=== PATIENT | male | born 1945 | race Caucasian/White ===

== ENCOUNTER 2017-10-07 00:17 | Observation (INO) | payer MEDICARE, OTHER ==
[~2017-10-07] VITALS: Ht 180.3 cm; Wt 102.3 kg
[~2017-10-07 00:17] MED LIST: ASCO500C15 PO; ASPI-1071 PO; ATOR10TA70 PO; CLON-527 PO; CLOP75TA35 PO; CYAN-19 PO; LEVE500T PO; LEVO25TA7 PO; OMEG1CAP2 PO; VIT1CAPS46 PO; ZOL50T PO
[2017-10-07 01:34] LABS: BASOPHILS % (AUTO) 0.4 % (0-1); EOSINOPHILS # (AUTO) 0.2 X10'3 (0-0.9); EOSINOPHILS % (AUTO) 1.3 % (0-6); HEMATOCRIT 42.3 % (42.0-52.0); HEMOGLOBIN 14.2 g/dl (14.0-17.9); LYMPHOCYTES # (AUTO) 1.2 X10'3 (1.1-4.8); LYMPHOCYTES % (AUTO) 10.3 % (21-51); MEAN CORPUSCULAR HEMOGLOBIN 28.7 PG (27.0-31.0); MEAN CORPUSCULAR HGB CONC 33.7 % (33.0-36.5); MEAN CORPUSCULAR VOLUME 85.3 FL (78-98); MEAN PLATELET VOLUME 7.5 FL (7.4-10.4); MONOCYTES # (AUTO) 0.6 X10'3 (0-0.9); MONOCYTES % (AUTO) 4.8 % (2-12); NEUTROPHILS # (AUTO) 9.7 X10'3 (1.8-7.7); NEUTROPHILS % (AUTO) 83.2 % (42-75); PLATELET COUNT 178 X10'3 (140-440); RED BLOOD COUNT 4.96 X10'6 (4.70-6.10); RED CELL DISTRIBUTION WIDTH 14.5 % (11.5-14.5); WHITE BLOOD COUNT 11.7 X10'3 (4.5-11.0)
[2017-10-07 01:43] LABS: PARTIAL THROMBOPLASTIN TIME 27 SECONDS (22-32); PROTHROMBIN TIME 10.7 SECONDS (9.0-12.0)
[2017-10-07 03:29] LABS: ALANINE AMINOTRANSFERASE 28 U/L (12-78); ALBUMIN 3.6 G/DL (3.4-5.0); ALBUMIN/GLOBULIN RATIO 1.2 (1.1-1.5); ALKALINE PHOSPHATASE 79 IU/L (46-116); ANION GAP 14 (8-16); ASPARTATE AMINO TRANSFERASE 16 U/L (10-37); BILIRUBIN,TOTAL 0.8 MG/DL (0.1-1.0); BLOOD UREA NITROGEN 16 MG/DL (7-18); BUN/CREATININE RATIO 11.9 (5.4-32.0); CALCIUM 9.2 MG/DL (8.5-10.1); CHLORIDE 107 MMOL/L (99-107); CREATININE 1.34 MG/DL (0.60-1.10); GLUCOSE 155 MG/DL (70-104); POTASSIUM 3.5 MMOL/L (3.5-5.1); SODIUM 144 MMOL/L (135-145); TOTAL PROTEIN 6.7 G/DL (6.4-8.2); eGFR 52 ML/MIN
[2017-10-07] MEDS ORDERED: nitroGLYCERIN 0.4mg SUBLingual tab SL PRN (04:25)
[2017-10-07] MEDS ORDERED: acetaminophen 325mg tablet PO PRN ×2 (04:25)
[2017-10-07] MEDS ORDERED: morphine 4 MG/ML inj SYRINge IV PRN ×2 (04:25)
[2017-10-07] MEDS ORDERED: aspirin 325mg tablet PO ONE (04:25)
[2017-10-07 05:06] LABS: CHOL/HDL RATIO 5.8 (0.00-4.99); CHOLESTEROL 190 MG/DL (0-200); HDL CHOLESTEROL 33 MG/DL (35-60); LDL CHOLESTEROL 114 MG/DL (50-100); TRIGLYCERIDES 355 MG/DL (20-135)
[2017-10-07 05:30] VITALS: BP 143/91
[2017-10-07 06:52] VITALS: BP 131/79
[2017-10-07] MEDS: heparin, porcine 5000 units/ml vial SQ SCH ×2 (07:09→16:38)
[2017-10-07] MEDS ORDERED: aspirin 325mg tablet PO SCH (08:00)
[2017-10-07] MEDS: beta-carotene(A) w/C & E + minerals tab PO SCH (08:00)
[2017-10-07] MEDS: cyanocobalamin 500mcg tablet PO SCH (09:04)
[2017-10-07] MEDS: clopidogrel 75mg tablet PO SCH (09:05)
[2017-10-07] MEDS: sertraline 50mg tablet PO SCH (09:05)
[2017-10-07] MEDS: levetiracetam 250mg tablet PO SCH ×3 (09:05→20:45)
[2017-10-07] MEDS: clonazePAM 1mg tablet PO SCH ×3 (09:05→20:45)
[2017-10-07 11:00] VITALS: BP 126/66
[2017-10-07 15:00] VITALS: BP 147/81
[2017-10-07 19:00] VITALS: BP 153/80
[2017-10-07] MEDS: amiodarone 200mg tablet PO SCH (20:45)
[2017-10-07] MEDS: OMEGA-3/DHA/EPA/FISH OIL 1 EACH CAPSULE.DR PO SCH (20:45)
[2017-10-07] MEDS: atorvastatin 10mg tablet PO SCH (20:45)
[2017-10-07] MEDS: ascorbic acid 500mg tablet PO SCH (20:46)
[2017-10-07 23:00] VITALS: BP 144/88
[2017-10-08] MEDS: heparin, porcine 5000 units/ml vial SQ SCH ×4 (00:41→23:49)
[2017-10-08 03:00] VITALS: BP 120/57
[2017-10-08 05:20] LABS: BASOPHILS % (AUTO) 0.5 % (0-1); EOSINOPHILS # (AUTO) 0.3 X10'3 (0-0.9); EOSINOPHILS % (AUTO) 3.3 % (0-6); HEMOGLOBIN 14.6 g/dl (14.0-17.9); LYMPHOCYTES # (AUTO) 2.3 X10'3 (1.1-4.8); LYMPHOCYTES % (AUTO) 28.9 % (21-51); MEAN CORPUSCULAR HEMOGLOBIN 29.8 PG (27.0-31.0); MEAN CORPUSCULAR HGB CONC 34.7 % (33.0-36.5); MEAN PLATELET VOLUME 7.3 FL (7.4-10.4); MONOCYTES # (AUTO) 0.6 X10'3 (0-0.9); MONOCYTES % (AUTO) 7.3 % (2-12); NEUTROPHILS # (AUTO) 4.7 X10'3 (1.8-7.7); PLATELET COUNT 171 X10'3 (140-440); RED BLOOD COUNT 4.88 X10'6 (4.70-6.10); RED CELL DISTRIBUTION WIDTH 15.2 % (11.5-14.5); WHITE BLOOD COUNT 7.8 X10'3 (4.5-11.0)
[2017-10-08 05:37] LABS: ALANINE AMINOTRANSFERASE 27 U/L (12-78); ALBUMIN 3.6 G/DL (3.4-5.0); ALBUMIN/GLOBULIN RATIO 1.2 (1.1-1.5); ALKALINE PHOSPHATASE 67 IU/L (46-116); ANION GAP 13 (8-16); ASPARTATE AMINO TRANSFERASE 18 U/L (10-37); BILIRUBIN,TOTAL 1.1 MG/DL (0.1-1.0); BLOOD UREA NITROGEN 16 MG/DL (7-18); CALCIUM 8.9 MG/DL (8.5-10.1); CHLORIDE 106 MMOL/L (99-107); CREATININE 1.14 MG/DL (0.60-1.10); GLUCOSE 117 MG/DL (70-104); POTASSIUM 3.6 MMOL/L (3.5-5.1); SODIUM 143 MMOL/L (135-145); TOTAL CARBON DIOXIDE 24.2 MMOL/L (24-32); TOTAL PROTEIN 6.7 G/DL (6.4-8.2); eGFR 63 ML/MIN
[2017-10-08 07:00] VITALS: BP 137/77
[2017-10-08] MEDS: amiodarone 200mg tablet PO SCH ×3 (07:19→20:50)
[2017-10-08] MEDS: beta-carotene(A) w/C & E + minerals tab PO SCH (07:19)
[2017-10-08] MEDS: levetiracetam 250mg tablet PO SCH ×3 (07:19→20:50)
[2017-10-08] MEDS: clopidogrel 75mg tablet PO SCH (07:19)
[2017-10-08] MEDS: pantoprazole 40mg Tablet.DR PO SCH (07:19)
[2017-10-08] MEDS: levoTHYROXINE 25mcg tablet PO SCH (07:21)
[2017-10-08] MEDS: cyanocobalamin 500mcg tablet PO SCH (07:21)
[2017-10-08] MEDS: ascorbic acid 500mg tablet PO SCH ×2 (07:22→20:49)
[2017-10-08] MEDS: sertraline 50mg tablet PO SCH (07:22)
[2017-10-08] MEDS: clonazePAM 1mg tablet PO SCH ×3 (07:22→20:49)
[2017-10-08] MEDS: aspirin 81mg tablet.DR PO SCH (08:00)
[2017-10-08 11:00] VITALS: BP 151/79
[2017-10-08 15:00] VITALS: BP 146/78
[2017-10-08 19:00] VITALS: BP 136/77
[2017-10-08] MEDS: atorvastatin 10mg tablet PO SCH (20:49)
[2017-10-08] MEDS: OMEGA-3/DHA/EPA/FISH OIL 1 EACH CAPSULE.DR PO SCH (20:49)
[2017-10-08] MEDS: OLANZapine 2.5MG tablet PO SCH (20:52)
[2017-10-08 23:00] VITALS: BP 124/64
[2017-10-09] VITALS (15 sets, daily range): BP systolic 124–157; BP diastolic 56–90
[2017-10-09] MEDS ORDERED: regadenoson 0.4mg/5ml syringe IV ONE ×2 (06:50→10:47)
[2017-10-09] MEDS ORDERED: CAFFEINE CITRATE 60 MG/3 ML injection vial IV PRN (06:50)
[2017-10-09] MEDS ORDERED: metoprolol tartrate 1mg/ml inj IV PRN (06:50)
[2017-10-09] MEDS ORDERED: nitroGLYCERIN 0.4mg SUBLingual tab SL PRN (06:50)
[2017-10-09] MEDS: heparin, porcine 5000 units/ml vial SQ SCH ×2 (07:17→16:06)
[2017-10-09] MEDS: levoTHYROXINE 25mcg tablet PO SCH (07:17)
[2017-10-09] MEDS: levetiracetam 250mg tablet PO SCH ×3 (07:17→20:08)
[2017-10-09] MEDS: pantoprazole 40mg Tablet.DR PO SCH (07:17)
[2017-10-09] MEDS: sertraline 50mg tablet PO SCH (07:18)
[2017-10-09] MEDS: aspirin 81mg tablet.DR PO SCH (07:18)
[2017-10-09] MEDS: ascorbic acid 500mg tablet PO SCH ×2 (07:18→20:07)
[2017-10-09] MEDS: amiodarone 200mg tablet PO SCH ×3 (07:18→20:07)
[2017-10-09] MEDS: clonazePAM 1mg tablet PO SCH ×3 (07:18→20:07)
[2017-10-09] MEDS: OLANZapine 2.5MG tablet PO SCH (07:18)
[2017-10-09] MEDS: clopidogrel 75mg tablet PO SCH (07:18)
[2017-10-09] MEDS: cyanocobalamin 500mcg tablet PO SCH (07:19)
[2017-10-09] MEDS: beta-carotene(A) w/C & E + minerals tab PO SCH (07:19)
[2017-10-09] MEDS ORDERED: CAFFEINE CITRATE 60 MG/3 ML injection vial IV ONE (10:47)
[2017-10-09] MEDS: atorvastatin 10mg tablet PO SCH (20:07)
[2017-10-09] MEDS: OMEGA-3/DHA/EPA/FISH OIL 1 EACH CAPSULE.DR PO SCH (20:26)
[2017-10-10] MEDS: heparin, porcine 5000 units/ml vial SQ SCH ×3 (00:16→14:43)
[2017-10-10 03:00] VITALS: BP 127/70
[2017-10-10 06:00] VITALS: BP 116/70
[2017-10-10] MEDS ORDERED: amiodarone 200mg tablet PO SCH (08:00)
[2017-10-10 08:04] LABS: ALBUMIN 3.4 G/DL (3.4-5.0); ANION GAP 11 (8-16); BLOOD UREA NITROGEN 18 MG/DL (7-18); BUN/CREATININE RATIO 14.5 (5.4-32.0); CALCIUM 8.8 MG/DL (8.5-10.1); CHLORIDE 108 MMOL/L (99-107); CREATININE 1.24 MG/DL (0.60-1.10); GLUCOSE 102 MG/DL (70-104); MAGNESIUM 2.1 MG/DL (1.5-2.4); POTASSIUM 3.9 MMOL/L (3.5-5.1); SODIUM 145 MMOL/L (135-145); eGFR 57 ML/MIN
[2017-10-10] MEDS: aspirin 81mg tablet.DR PO SCH (08:41)
[2017-10-10] MEDS: beta-carotene(A) w/C & E + minerals tab PO SCH (08:41)
[2017-10-10] MEDS: clonazePAM 1mg tablet PO SCH ×2 (08:41→14:43)
[2017-10-10] MEDS: levoTHYROXINE 25mcg tablet PO SCH (08:41)
[2017-10-10] MEDS: clopidogrel 75mg tablet PO SCH (08:42)
[2017-10-10] MEDS: OLANZapine 2.5MG tablet PO SCH (08:42)
[2017-10-10] MEDS: cyanocobalamin 500mcg tablet PO SCH (08:42)
[2017-10-10] MEDS: sertraline 50mg tablet PO SCH (08:42)
[2017-10-10] MEDS: pantoprazole 40mg Tablet.DR PO SCH (08:42)
[2017-10-10] MEDS: ascorbic acid 500mg tablet PO SCH (08:42)
[2017-10-10] MEDS: levetiracetam 250mg tablet PO SCH ×2 (08:42→14:43)
[2017-10-10 12:18] VITALS: BP 153/81
== END 2017-10-10 15:05 ==
LOC: ER 00:17 → ED HOLD 04:23 → PCU 3S 05:18
PROVIDERS: ADMIT Internal Medicine; ATTEND Internal Medicine
DX: R07.89 Other chest pain (principal); I25.10 Atherosclerotic heart disease of native coronary artery without angina pectoris; G20 Parkinson's disease; G40.909 Epilepsy, unspecified, not intractable, without status epilepticus; E78.00 Pure hypercholesterolemia, unspecified; E11.9 Type 2 diabetes mellitus without complications; E78.5 Hyperlipidemia, unspecified; I10 Essential (primary) hypertension; I48.91 Unspecified atrial fibrillation; R53.1 Weakness; Z95.1 Presence of aortocoronary bypass graft; Z95.810 Presence of automatic (implantable) cardiac defibrillator
CPT/HCPCS: 36415; 71045; 78452; 80048; 80053; 80061; 82948; 83735; 83880; 84439; 84443; 84484; 85025; 85610; 85730; 87070; 93005; 93017; 93306; 96372; 96374; 96375; 97110; 97116; 97162; 97530; 99285; A9500; G0378; J1644; J2270

== ENCOUNTER 2017-12-19 15:17 | Emergency (ER) | payer MEDICARE, OTHER ==
[~2017-12-19] VITALS: Ht 180.3 cm; Wt 109.0 kg
[2017-12-19 15:58] LABS: BASOPHILS # (AUTO) 0.1 X10'3 (0-0.2); BASOPHILS % (AUTO) 1.1 % (0-1); EOSINOPHILS # (AUTO) 0.3 X10'3 (0-0.9); EOSINOPHILS % (AUTO) 2.4 % (0-6); HEMATOCRIT 43.5 % (42.0-52.0); HEMOGLOBIN 14.9 g/dl (14.0-17.9); LYMPHOCYTES # (AUTO) 1.9 X10'3 (1.1-4.8); LYMPHOCYTES % (AUTO) 15.2 % (21-51); MEAN CORPUSCULAR HEMOGLOBIN 29.9 PG (27.0-31.0); MEAN CORPUSCULAR HGB CONC 34.2 % (33.0-36.5); MEAN CORPUSCULAR VOLUME 87.4 FL (78-98); MEAN PLATELET VOLUME 7.4 FL (7.4-10.4); MONOCYTES # (AUTO) 0.8 X10'3 (0-0.9); MONOCYTES % (AUTO) 6.8 % (2-12); NEUTROPHILS # (AUTO) 9.2 X10'3 (1.8-7.7); NEUTROPHILS % (AUTO) 74.5 % (42-75); PLATELET COUNT 189 X10'3 (140-440); RED BLOOD COUNT 4.98 X10'6 (4.70-6.10); RED CELL DISTRIBUTION WIDTH 14.9 % (11.5-14.5); WHITE BLOOD COUNT 12.4 X10'3 (4.5-11.0)
[2017-12-19 16:08] LABS: INR 1.1 INR; PARTIAL THROMBOPLASTIN TIME 30 SECONDS (22-32); PROTHROMBIN TIME 11.1 SECONDS (9.0-12.0)
[2017-12-19 16:12] LABS: ALANINE AMINOTRANSFERASE 12 U/L (12-78); ALBUMIN 3.6 G/DL (3.4-5.0); ALBUMIN/GLOBULIN RATIO 1.1 (1.1-1.5); ALKALINE PHOSPHATASE 92 IU/L (46-116); ANION GAP 7 (8-16); ASPARTATE AMINO TRANSFERASE 14 U/L (10-37); BLOOD UREA NITROGEN 16 MG/DL (7-18); BUN/CREATININE RATIO 12.1 (5.4-32.0); CALCIUM 8.7 MG/DL (8.5-10.1); CHLORIDE 107 MMOL/L (99-107); CREATININE 1.32 MG/DL (0.60-1.10); GLUCOSE 129 MG/DL (70-104); POTASSIUM 4.4 MMOL/L (3.5-5.1); SODIUM 139 MMOL/L (135-145); TOTAL CARBON DIOXIDE 25.5 MMOL/L (24-32); eGFR 53 ML/MIN
[2017-12-19 18:52] VITALS: BP 132/74
== END 2017-12-19 18:53 | disposition home or self-care (01) ==
LOC: ER 15:18
DX: R07.89 Other chest pain (principal); G20 Parkinson's disease; F02.80 Dementia in other diseases classified elsewhere, unspecified severity, without behavioral disturbance, psychotic disturbance, mood disturbance, and anxiety; R10.13 Epigastric pain; I48.91 Unspecified atrial fibrillation; I25.10 Atherosclerotic heart disease of native coronary artery without angina pectoris; E78.00 Pure hypercholesterolemia, unspecified; I10 Essential (primary) hypertension; I25.2 Old myocardial infarction; Z90.89 Acquired absence of other organs; Z95.1 Presence of aortocoronary bypass graft; Z79.82 Long term (current) use of aspirin; Z79.899 Other long term (current) drug therapy
CPT/HCPCS: 36415; 71045; 80053; 84484; 85025; 85610; 85730; 93005; 99285

== ENCOUNTER 2018-07-15 11:18 | Inpatient (IN) | payer MEDICARE, OTHER | END 2018-07-23 17:20 | LOC: PCU 3S 07-21 00:10 → ER 11:18 → ED HOLD 14:23 → PCU 3S 20:22 → ED HOLD 20:40 → PCU 3S 22:12 | DX: I12.9 Hypertensive chronic kidney disease with stage 1 through stage 4 chronic kidney disease, or unspecified chronic kidney disease (principal); N18.9 Chronic kidney disease, unspecified ==

== ENCOUNTER 2019-05-07 15:15 | Inpatient (IN) | payer MEDICARE, OTHER ==
[~2019-05-07] VITALS: Ht 177.8 cm; Wt 113.0 kg
[~2019-05-07 15:15] MED LIST changes: +AMIO200T61 PO; +APIX5TAB3 PO; -ASPI-1071 PO; -CLON-527 PO; +CLON0.5T23 PO; -CLOP75TA35 PO; -CYAN-19 PO; +CYAN100019 PO; +GUAI200T5 PO; +LAMO25TA94 PO; -LEVO25TA7 PO; +LEVO75TA PO; +SERT-153 PO; -ZOL50T PO
[2019-05-07] MEDS ORDERED: normal saline 1000ML IV soln IVB ONE (15:30)
[2019-05-07 16:00] LABS: BASOPHILS # (AUTO) 0.1 X10'3 (0-0.2); BASOPHILS % (AUTO) 0.5 % (0-1); EOSINOPHILS # (AUTO) 0.2 X10'3 (0-0.9); EOSINOPHILS % (AUTO) 1.6 % (0-6); HEMATOCRIT 42.3 % (42.0-52.0); HEMOGLOBIN 14.5 g/dl (14.0-17.9); LYMPHOCYTES # (AUTO) 1.6 X10'3 (1.1-4.8); LYMPHOCYTES % (AUTO) 14.2 % (21-51); MEAN CORPUSCULAR HEMOGLOBIN 30.6 PG (27.0-31.0); MEAN CORPUSCULAR HGB CONC 34.2 g/dL (33.0-36.5); MEAN CORPUSCULAR VOLUME 89.6 FL (78-98); MEAN PLATELET VOLUME 7.3 FL (7.4-10.4); MONOCYTES # (AUTO) 0.8 X10'3 (0-0.9); MONOCYTES % (AUTO) 6.9 % (2-12); NEUTROPHILS # (AUTO) 8.4 X10'3 (1.8-7.7); NEUTROPHILS % (AUTO) 76.8 % (42-75); PLATELET COUNT 181 X10'3 (140-440); RED BLOOD COUNT 4.73 X10'6 (4.70-6.10); RED CELL DISTRIBUTION WIDTH 15.1 % (11.5-14.5)
[2019-05-07 16:14] LABS: ALANINE AMINOTRANSFERASE 35 U/L (12-78); ALBUMIN 3.8 G/DL (3.4-5.0); ALBUMIN/GLOBULIN RATIO 1.1 (1.1-1.5); ALKALINE PHOSPHATASE 100 IU/L (46-116); ANION GAP 11 (8-16); ASPARTATE AMINO TRANSFERASE 24 U/L (10-37); BILIRUBIN,TOTAL 0.8 MG/DL (0.1-1.0); BLOOD UREA NITROGEN 15 MG/DL (7-18); BUN/CREATININE RATIO 9.7 (5.4-32.0); CHLORIDE 103 MMOL/L (99-107); CREATININE 1.55 MG/DL (0.60-1.10); GLUCOSE 134 MG/DL (70-104); SODIUM 140 MMOL/L (135-145); TOTAL CARBON DIOXIDE 26.4 MMOL/L (24-32); TOTAL PROTEIN 7.2 G/DL (6.4-8.2); eGFR 44 ML/MIN
[2019-05-07 16:21] LABS: ETHANOL < 0.010 GM/DL (0.0-0.010)
[2019-05-07 17:31] LABS: CLARITY,URINE SLIGHTLY CLOUDY (Clear); COLOR,URINE YELLOW (Yellow); GLUCOSE, URINE NEGATIVE (Neg); KETONES,URINE NEGATIVE (Neg); LEUKOCYTE ESTERASE ,URINE NEGATIVE (Neg); NITRITES, URINE NEGATIVE (Neg); OCCULT BLOOD,URINE LARGE (Neg); PH,URINE 5.5 (4.8-8.0); PROTEIN,URINE 30 mg/dl (Neg); UROBILINOGEN,URINE 0.2 E.U/dL (0.2-1.0)
[2019-05-07 17:33] LABS: UA COLLECTION TYPE CLN CATCH MIDSTREAM
[2019-05-07 17:40] LABS: URINE AMPHETAMINE SCREEN NEGATIVE (Neg); URINE BARBITUATE SCREEN NEGATIVE (Neg); URINE BENZODIAZEPINES SCREEN POSITIVE (Neg); URINE CANNABINOID SCREEN NEGATIVE (Neg); URINE COCAINE SCREEN NEGATIVE (Neg); URINE METHADONE SCREEN NEGATIVE (Neg); URINE OPIATE SCREEN NEGATIVE (Neg); URINE PHENCYCLIDINE SCREEN NEGATIVE (Neg)
[2019-05-07 17:41] LABS: SQUAMOUS EPITHELIAL CELL,UR FEW /LPF (FEW)
[2019-05-07 17:42] LABS: RBC,URINE 50-100 /HPF (0-2)
[2019-05-07 17:43] LABS: BACTERIA,URINE FEW /HPF (Neg)
[2019-05-07 17:44] LABS: MUCUS STRANDS MODERATE /LPF (Neg); TRANSITIONAL EPI CELLS,URINE FEW /HPF
[2019-05-07 17:50] LABS: AMORPHOUS URATES 1+
[2019-05-07] MEDS ORDERED: acetaminophen 325mg tablet PO PRN (21:55)
[2019-05-07] MEDS ORDERED: mag hydrox/Alum hydrox/simeth 30ml oral suspension PO PRN (21:55)
[2019-05-07] MEDS ORDERED: HYDROcodone/acetaminophen 5mg/325mg tablet PO PRN (21:55)
[2019-05-07] MEDS ORDERED: magnesium hydroxide 30ml (MOM) UD suspension PO PRN (21:55)
[2019-05-07] MEDS ORDERED: ondansetron/PF 4mg/2ml inj IV PRN (21:55)
[2019-05-07] MEDS ORDERED: CefTRIAXone/D5W-Rocephin 1gm 50 ML IV ONE (21:55)
[2019-05-07] MEDS ORDERED: LAMO100T PO (21:57)
[2019-05-07] MEDS ORDERED: ADV50100 IH (21:57)
[2019-05-07] MEDS ORDERED: CARB1DRO18 OP (21:59)
[2019-05-07] MEDS ORDERED: OMEG1CAP2 PO (22:02)
[2019-05-07] MEDS: normal saline 1000ml 1,000 ML IV SCH (22:08)
[2019-05-07] MEDS ORDERED: clonazePAM 0.5mg tablet PO PRN (22:10)
--- NOTE | 2019-05-07 22:30 | NUR ---
Patient in room ED 7. I have received report from ALBARO Barrow and had the opportunity to ask questions and assume patient care.
[2019-05-07 23:30] VITALS: BP 148/76
[2019-05-08] MEDS: albuterol 2.5 MG/3 ML nebule NEB SCH ×4 (03:04→20:08)
[2019-05-08] MEDS ORDERED: clonazePAM 0.5mg tablet PO SCH (03:58)
[2019-05-08] MEDS: clonazePAM 0.5mg tablet PO PRN ×4 (05:13→20:31)
[2019-05-08] MEDS: normal saline 1000ml 1,000 ML IV SCH ×2 (05:13→17:58)
[2019-05-08 06:06] LABS: BASOPHILS % (AUTO) 0.4 % (0-1); EOSINOPHILS # (AUTO) 0.2 X10'3 (0-0.9); EOSINOPHILS % (AUTO) 1.9 % (0-6); HEMATOCRIT 37.8 % (42.0-52.0); HEMOGLOBIN 12.9 g/dl (14.0-17.9); LYMPHOCYTES # (AUTO) 1.7 X10'3 (1.1-4.8); LYMPHOCYTES % (AUTO) 19.4 % (21-51); MEAN CORPUSCULAR HEMOGLOBIN 30.7 PG (27.0-31.0); MEAN CORPUSCULAR HGB CONC 34.1 g/dL (33.0-36.5); MEAN CORPUSCULAR VOLUME 89.9 FL (78-98); MEAN PLATELET VOLUME 7.4 FL (7.4-10.4); MONOCYTES # (AUTO) 0.6 X10'3 (0-0.9); MONOCYTES % (AUTO) 6.7 % (2-12); NEUTROPHILS # (AUTO) 6.1 X10'3 (1.8-7.7); NEUTROPHILS % (AUTO) 71.6 % (42-75); PLATELET COUNT 154 X10'3 (140-440); RED CELL DISTRIBUTION WIDTH 15.3 % (11.5-14.5); WHITE BLOOD COUNT 8.6 X10'3 (4.5-11.0)
--- NOTE | 2019-05-08 06:17 | NUR ---
Problems reprioritized. Patient report given, questions answered & plan of care reviewed with ALBARO Melton.
[2019-05-08 06:32] LABS: ALANINE AMINOTRANSFERASE 27 U/L (12-78); ALBUMIN 3.1 G/DL (3.4-5.0); ALKALINE PHOSPHATASE 85 IU/L (46-116); ANION GAP 12 (8-16); ASPARTATE AMINO TRANSFERASE 23 U/L (10-37); BILIRUBIN,TOTAL 0.6 MG/DL (0.1-1.0); BLOOD UREA NITROGEN 15 MG/DL (7-18); BUN/CREATININE RATIO 10.4 (5.4-32.0); CALCIUM 8.1 MG/DL (8.5-10.1); CHLORIDE 107 MMOL/L (99-107); CREATININE 1.44 MG/DL (0.60-1.10); GLUCOSE 98 MG/DL (70-104); SODIUM 143 MMOL/L (135-145); TOTAL CARBON DIOXIDE 23.7 MMOL/L (24-32); TOTAL PROTEIN 6.1 G/DL (6.4-8.2); eGFR 48 ML/MIN
[2019-05-08 07:00] VITALS: BP 136/61
--- NOTE | 2019-05-08 07:06 | NUR ---
Patient in room BRIAN 359. I have received report from Trenton IRVIN and had the opportunity to ask questions and assume patient care.
[2019-05-08] MEDS ORDERED: heparin, porcine 5000 units/ml vial SQ SCH (08:00)
[2019-05-08] MEDS ORDERED: [UNRECOGNIZED DRUG - OTHER] PO SCH (08:00)
[2019-05-08] MEDS: levoTHYROXINE 75mcg tablet PO SCH (08:23)
[2019-05-08] MEDS: amiodarone 200mg tablet PO SCH (08:23)
[2019-05-08] MEDS: sertraline 50mg tablet PO SCH (08:23)
[2019-05-08] MEDS: apixaban 5mg tablet PO SCH ×2 (08:23→20:31)
[2019-05-08] MEDS: lamoTRIgine 100mg tablet PO SCH ×2 (08:24→20:31)
[2019-05-08] MEDS: levetiracetam 250mg tablet PO SCH ×4 (08:24→20:36)
[2019-05-08] MEDS: lamoTRIgine 25mg tablet PO SCH ×2 (08:25→20:36)
[2019-05-08] MEDS: mineral oil/petrolatum ophthal oint EACHEYE SCH ×2 (08:27→20:37)
--- NOTE | 2019-05-08 08:41 | NUR ---
Pt states occasionally he experiences numbness and tingling in lower extremities, he states due to heart disease. Kate student nurse Addendum: 05/08/19 at 0852 by Kate Palafox STUDENT [facility] Amended: Links added.
[2019-05-08] MEDS: budesonide 0.5mg/2ml UD nebule IH SCH ×2 (08:45→20:08)
--- NOTE | 2019-05-08 08:46 | NUR ---
Pt states last BM 05/08. kuldip Love nurse Addendum: 05/08/19 at 0852 by Kate Palafox STUDENT LINDA Amended: Links added.
[2019-05-08 11:00] VITALS: BP 167/69
--- NOTE | 2019-05-08 13:05 | NUR ---
Patient in room BRIAN 358. I have received report from Kate RN student and had the opportunity to ask questions and assume patient care.
--- NOTE | 2019-05-08 16:41 | NUR ---
Time spent answering questions with family and patient. Spoke with registered nurse hh case manager karen. With regards placement.
--- NOTE | 2019-05-08 18:24 | NUR ---
patient appears stable. report given to layla IRVIN
--- NOTE | 2019-05-08 18:37 | NUR ---
Patient in room BRIAN 358. I have received report from Linh IRVIN and had the opportunity to ask questions and assume patient care. Pt sitting up in bed being assisted in eating his dinner. No signs of distress, will continue to monitor.
--- NOTE | 2019-05-08 18:38 | NUR ---
Patient in room BRIAN 358. I have received report from Linh IRVIN and had the opportunity to ask questions and assume patient care.
[2019-05-08 20:00] VITALS: BP 149/74
[2019-05-08] MEDS: lactobacillus rhamnosus 10,000 MMU CELLS/CAPSULE PO SCH (20:31)
[2019-05-08] MEDS: atorvastatin 10mg tablet PO SCH (20:36)
[2019-05-08] MEDS ORDERED: CefTRIAXone/D5W-Rocephin 1gm 50 ML IV SCH (22:00)
[2019-05-09 00:06] VITALS: BP 130/58
[2019-05-09] MEDS: albuterol 2.5 MG/3 ML nebule NEB SCH ×4 (02:59→20:17)
[2019-05-09] MEDS: normal saline 1000ml 1,000 ML IV SCH ×3 (03:51→15:59)
[2019-05-09 05:59] LABS: BASOPHILS % (AUTO) 0.4 % (0-1); EOSINOPHILS # (AUTO) 0.2 X10'3 (0-0.9); HEMATOCRIT 37.8 % (42.0-52.0); HEMOGLOBIN 12.9 g/dl (14.0-17.9); LYMPHOCYTES # (AUTO) 1.6 X10'3 (1.1-4.8); LYMPHOCYTES % (AUTO) 18.9 % (21-51); MEAN CORPUSCULAR HEMOGLOBIN 30.9 PG (27.0-31.0); MEAN CORPUSCULAR HGB CONC 34.1 g/dL (33.0-36.5); MEAN CORPUSCULAR VOLUME 90.5 FL (78-98); MEAN PLATELET VOLUME 7.4 FL (7.4-10.4); MONOCYTES # (AUTO) 0.5 X10'3 (0-0.9); MONOCYTES % (AUTO) 6.1 % (2-12); NEUTROPHILS # (AUTO) 6.2 X10'3 (1.8-7.7); NEUTROPHILS % (AUTO) 72.6 % (42-75); PLATELET COUNT 157 X10'3 (140-440); RED BLOOD COUNT 4.18 X10'6 (4.70-6.10); RED CELL DISTRIBUTION WIDTH 15.4 % (11.5-14.5); WHITE BLOOD COUNT 8.6 X10'3 (4.5-11.0)
[2019-05-09 06:03] LABS: ALANINE AMINOTRANSFERASE 28 U/L (12-78); ALKALINE PHOSPHATASE 89 IU/L (46-116); ANION GAP 12 (8-16); ASPARTATE AMINO TRANSFERASE 19 U/L (10-37); BILIRUBIN,TOTAL 0.4 MG/DL (0.1-1.0); BLOOD UREA NITROGEN 17 MG/DL (7-18); BUN/CREATININE RATIO 11.9 (5.4-32.0); CALCIUM 8.3 MG/DL (8.5-10.1); CHLORIDE 107 MMOL/L (99-107); CREATININE 1.43 MG/DL (0.60-1.10); GLUCOSE 107 MG/DL (70-104); SODIUM 143 MMOL/L (135-145); TOTAL CARBON DIOXIDE 24.4 MMOL/L (24-32); TOTAL PROTEIN 6.1 G/DL (6.4-8.2); eGFR 48 ML/MIN
--- NOTE | 2019-05-09 06:31 | NUR ---
Problems reprioritized. Patient report given, questions answered & plan of care reviewed with Mahnaz RN and Jessy IRVIN.
--- NOTE | 2019-05-09 06:32 | NUR ---
Problems reprioritized. Patient report given, questions answered & plan of care reviewed with Mahnaz IRVIN.
[2019-05-09] MEDS: mineral oil/petrolatum ophthal oint EACHEYE SCH ×2 (07:28→20:21)
[2019-05-09] MEDS: apixaban 5mg tablet PO SCH ×2 (07:30→20:20)
[2019-05-09] MEDS: levetiracetam 250mg tablet PO SCH ×4 (07:30→22:19)
[2019-05-09] MEDS: lactobacillus rhamnosus 10,000 MMU CELLS/CAPSULE PO SCH ×2 (07:30→20:20)
[2019-05-09] MEDS: levoTHYROXINE 75mcg tablet PO SCH (07:30)
[2019-05-09] MEDS: lamoTRIgine 100mg tablet PO SCH ×2 (07:31→20:21)
[2019-05-09] MEDS: lamoTRIgine 25mg tablet PO SCH ×2 (07:31→20:20)
[2019-05-09] MEDS: sertraline 50mg tablet PO SCH (07:32)
[2019-05-09] MEDS: amiodarone 200mg tablet PO SCH (07:32)
[2019-05-09 08:00] VITALS: BP 163/83
[2019-05-09] MEDS: budesonide 0.5mg/2ml UD nebule IH SCH ×2 (08:51→20:17)
[2019-05-09] MEDS: clonazePAM 0.5mg tablet PO PRN ×3 (10:17→22:19)
[2019-05-09 11:00] VITALS: BP 139/64
--- NOTE | 2019-05-09 18:42 | NUR ---
Received report from Mahnaz IRVIN and Antonella RN pt is asking for a clean pair of pj pants, on RA, asking to be straightened up in bed.
[2019-05-09 19:00] VITALS: BP 120/72
--- NOTE | 2019-05-09 19:35 | NUR ---
Problems reprioritized. Patient report given, questions answered & plan of care reviewed with Kaci IRVIN.
[2019-05-09] MEDS: atorvastatin 10mg tablet PO SCH (20:20)
[2019-05-10 00:15] VITALS: BP 160/81
[2019-05-10] MEDS: albuterol 2.5 MG/3 ML nebule NEB SCH ×2 (03:52→08:01)
[2019-05-10 06:04] LABS: BASOPHILS % (AUTO) 0.4 % (0-1); EOSINOPHILS # (AUTO) 0.2 X10'3 (0-0.9); EOSINOPHILS % (AUTO) 2.4 % (0-6); HEMATOCRIT 40.1 % (42.0-52.0); HEMOGLOBIN 13.5 g/dl (14.0-17.9); LYMPHOCYTES # (AUTO) 1.6 X10'3 (1.1-4.8); LYMPHOCYTES % (AUTO) 18.2 % (21-51); MEAN CORPUSCULAR HEMOGLOBIN 30.4 PG (27.0-31.0); MEAN CORPUSCULAR HGB CONC 33.7 g/dL (33.0-36.5); MEAN CORPUSCULAR VOLUME 90.3 FL (78-98); MEAN PLATELET VOLUME 7.5 FL (7.4-10.4); MONOCYTES # (AUTO) 0.5 X10'3 (0-0.9); MONOCYTES % (AUTO) 5.4 % (2-12); NEUTROPHILS # (AUTO) 6.6 X10'3 (1.8-7.7); NEUTROPHILS % (AUTO) 73.6 % (42-75); PLATELET COUNT 149 X10'3 (140-440); RED BLOOD COUNT 4.44 X10'6 (4.70-6.10); RED CELL DISTRIBUTION WIDTH 15.4 % (11.5-14.5)
--- NOTE | 2019-05-10 06:26 | NUR ---
Gave report to Taylor IRVIN pt is fiixated on Bi-Pap machine and that is "does not look like no C-PAP machine I have seen" and he is concerned that his breathing treatment was left on to long. Informed him that the machine in the hospital may look different, pt states he has a 9/10 headache, dry throat, and is having pain. We let him know we will get a set of vital signs on him and he states " I want an outside source such as the newspaper to get them."
--- NOTE | 2019-05-10 06:41 | NUR ---
Patient in room BRIAN 358. I have received report from Kaci IRVIN and had the opportunity to ask questions and assume patient care.
[2019-05-10 06:50] VITALS: BP 183/88
--- NOTE | 2019-05-10 06:50 | NUR ---
Patient has been expressing concern about getting a different machine (i.e., BIPAP) not a CPAP. I asked him if he has CPAP at home, he said he does. I advised him to have his family bring his own CPAP, he said he did not want to. Patient was shaking, anxious about having "wrong machine". His BP was 183/88, heart rate 67, O2 sat 94% on room air, very shaky,and complainign of 9/10 headache. Tylenol 650mg PO given and Clonazepam PO given as indicated
[2019-05-10 06:55] LABS: ALANINE AMINOTRANSFERASE 26 U/L (12-78); ALBUMIN 3.2 G/DL (3.4-5.0); ALKALINE PHOSPHATASE 82 IU/L (46-116); ANION GAP 11 (8-16); ASPARTATE AMINO TRANSFERASE 20 U/L (10-37); BILIRUBIN,TOTAL 0.6 MG/DL (0.1-1.0); BLOOD UREA NITROGEN 14 MG/DL (7-18); BUN/CREATININE RATIO 10.8 (5.4-32.0); CALCIUM 8.3 MG/DL (8.5-10.1); CHLORIDE 107 MMOL/L (99-107); GLUCOSE 97 MG/DL (70-104); POTASSIUM 4.1 MMOL/L (3.5-5.1); SODIUM 142 MMOL/L (135-145); TOTAL CARBON DIOXIDE 24.5 MMOL/L (24-32); TOTAL PROTEIN 6.3 G/DL (6.4-8.2); eGFR 54 ML/MIN
[2019-05-10] MEDS: clonazePAM 0.5mg tablet PO PRN (06:58)
--- NOTE | 2019-05-10 07:29 | NUR ---
I discussed patient's complaint about the BIPAP machine with the Respiratory Therapist assigned to patient. She is currently in CICU unit, she said she will talk to the patient when she get a chance to address the concerns
[2019-05-10] MEDS: budesonide 0.5mg/2ml UD nebule IH SCH (08:01)
[2019-05-10] MEDS: mineral oil/petrolatum ophthal oint EACHEYE SCH (08:25)
[2019-05-10] MEDS: lamoTRIgine 25mg tablet PO SCH (08:26)
[2019-05-10] MEDS: lactobacillus rhamnosus 10,000 MMU CELLS/CAPSULE PO SCH (08:26)
[2019-05-10] MEDS: lamoTRIgine 100mg tablet PO SCH (08:26)
[2019-05-10] MEDS: amiodarone 200mg tablet PO SCH (08:26)
[2019-05-10] MEDS: levetiracetam 250mg tablet PO SCH (08:26)
[2019-05-10] MEDS: apixaban 5mg tablet PO SCH (08:26)
[2019-05-10] MEDS: sertraline 50mg tablet PO SCH (08:27)
[2019-05-10] MEDS: levoTHYROXINE 75mcg tablet PO SCH (08:27)
[2019-05-10] MEDS: normal saline 1000ml 1,000 ML IV SCH (08:31)
[2019-05-10 11:00] VITALS: BP 162/67
--- NOTE | 2019-05-10 11:24 | NUR ---
Report given to Laurie IRVIN at [facility]. was at bedside, aware of the discharge to [facility] today.
--- NOTE | 2019-05-10 12:25 | NUR ---
Patient left, transported to [facility] by Linda Cargo. Peripheral IV catheter removed, tip intact. Belongings sent with the patient
--- NOTE | 2019-05-10 13:28 | NUR ---
I have reviewed and agree with all medications administered and interventions performed by CLIENT ENGAGEMENT MANAGER Student Connor Reid.
== END 2019-05-10 12:23 | DRG 683 ==
LOC: ER 15:16 → ED HOLD 21:51 → EDBEDREQ 22:27 → SUR 3N 22:41
PROVIDERS: ADMIT Internal Medicine; ATTEND Internal Medicine
PROC: 5A09357 Assistance with Respiratory Ventilation, Less than 24 Consecutive Hours, Continuous Positive Airway Pressure (ICD-10-PCS; principal; 2019-05-08)
PROC: 4A10X4Z Monitoring of Central Nervous Electrical Activity, External Approach (ICD-10-PCS; 2019-05-09)
DX: N17.9 Acute kidney failure, unspecified (principal); G93.1 Anoxic brain damage, not elsewhere classified; I48.20 Chronic atrial fibrillation, unspecified; E03.9 Hypothyroidism, unspecified; E78.00 Pure hypercholesterolemia, unspecified; F02.80 Dementia in other diseases classified elsewhere, unspecified severity, without behavioral disturbance, psychotic disturbance, mood disturbance, and anxiety; G20 Parkinson's disease; G40.909 Epilepsy, unspecified, not intractable, without status epilepticus; G47.33 Obstructive sleep apnea (adult) (pediatric); E78.5 Hyperlipidemia, unspecified; R26.9 Unspecified abnormalities of gait and mobility; I10 Essential (primary) hypertension; E66.01 Morbid (severe) obesity due to excess calories; S93.401A Sprain of unspecified ligament of right ankle, initial encounter; I49.9 Cardiac arrhythmia, unspecified; W18.39XA Other fall on same level, initial encounter; I25.10 Atherosclerotic heart disease of native coronary artery without angina pectoris; I25.2 Old myocardial infarction; Z79.01 Long term (current) use of anticoagulants; Z79.51 Long term (current) use of inhaled steroids; Z87.820 Personal history of traumatic brain injury; Z86.74 Personal history of sudden cardiac arrest; Z91.81 History of falling; Z95.810 Presence of automatic (implantable) cardiac defibrillator; Z95.1 Presence of aortocoronary bypass graft; Z98.61 Coronary angioplasty status; Z82.49 Family history of ischemic heart disease and other diseases of the circulatory system; Z68.35 Body mass index [BMI] 35.0-35.9, adult; Y93.89 Activity, other specified; Y92.89 Other specified places as the place of occurrence of the external cause; Y99.8 Other external cause status; Z79.899 Other long term (current) drug therapy
CPT/HCPCS: 36415; 70450; 71045; 73610; 80053; 80305; 80320; 81001; 82140; 82948; 84443; 85025; 85610; 87081; 87088; 93005; 94640; 94660; 94760; 95816; 96365; 97110; 97116; 97162; 97530; 99285; G0378; J0696; J7030; J7626

== ENCOUNTER 2019-06-05 05:10 | Inpatient (IN) | payer MEDICARE, OTHER ==
[~2019-06-05] VITALS: Ht 180.3 cm; Wt 114.5 kg
[~2019-06-05 05:10] MED LIST changes: +ADV50100 IH; -ASCO500C15 PO; +CARB1DRO18 OP; -CYAN100019 PO; -GUAI200T5 PO; +LAMO100T PO; -LAMO25TA94 PO
[2019-06-05 05:38] LABS: BASOPHILS # (AUTO) 0.1 X10'3 (0-0.2); BASOPHILS % (AUTO) 0.7 % (0-1); EOSINOPHILS # (AUTO) 0.2 X10'3 (0-0.9); EOSINOPHILS % (AUTO) 1.7 % (0-6); HEMATOCRIT 40.3 % (42.0-52.0); HEMOGLOBIN 13.8 g/dl (14.0-17.9); LYMPHOCYTES # (AUTO) 1.7 X10'3 (1.1-4.8); LYMPHOCYTES % (AUTO) 16.7 % (21-51); MEAN CORPUSCULAR HEMOGLOBIN 30.3 PG (27.0-31.0); MEAN CORPUSCULAR HGB CONC 34.1 g/dL (33.0-36.5); MEAN CORPUSCULAR VOLUME 88.9 FL (78-98); MEAN PLATELET VOLUME 7.4 FL (7.4-10.4); MONOCYTES # (AUTO) 0.7 X10'3 (0-0.9); MONOCYTES % (AUTO) 6.7 % (2-12); NEUTROPHILS # (AUTO) 7.5 X10'3 (1.8-7.7); NEUTROPHILS % (AUTO) 74.2 % (42-75); PLATELET COUNT 179 X10'3 (140-440); RED BLOOD COUNT 4.54 X10'6 (4.70-6.10); RED CELL DISTRIBUTION WIDTH 15.4 % (11.5-14.5); WHITE BLOOD COUNT 10.1 X10'3 (4.5-11.0)
[2019-06-05 05:48] LABS: ALANINE AMINOTRANSFERASE 41 U/L (12-78); ALBUMIN 3.7 G/DL (3.4-5.0); ALBUMIN/GLOBULIN RATIO 1.2 (1.1-1.5); ALKALINE PHOSPHATASE 81 IU/L (46-116); ANION GAP 11 (8-16); ASPARTATE AMINO TRANSFERASE 24 U/L (10-37); BILIRUBIN,TOTAL 0.6 MG/DL (0.1-1.0); BLOOD UREA NITROGEN 21 MG/DL (7-18); BUN/CREATININE RATIO 14.9 (5.4-32.0); CALCIUM 8.5 MG/DL (8.5-10.1); CHLORIDE 109 MMOL/L (99-107); CREATININE 1.41 MG/DL (0.60-1.10); GLUCOSE 103 MG/DL (70-104); POTASSIUM 4.2 MMOL/L (3.5-5.1); SODIUM 145 MMOL/L (135-145); TOTAL CARBON DIOXIDE 25.1 MMOL/L (24-32); TOTAL PROTEIN 6.9 G/DL (6.4-8.2); eGFR 49 ML/MIN
[2019-06-05] MEDS ORDERED: aspirin 81mg tab.chew PO ONE (06:00)
[2019-06-05] MEDS ORDERED: nitroGLYCERIN 0.4mg/hour patch TD ONE (06:00)
[2019-06-05] MEDS ORDERED: mag hydrox/Alum hydrox/simeth 30ml oral suspension PO PRN (07:45)
[2019-06-05] MEDS ORDERED: acetaminophen 325mg tablet PO PRN ×2 (07:45→13:25)
[2019-06-05] MEDS ORDERED: morphine 2 MG/ML inj. syringe IV PRN ×2 (07:45)
[2019-06-05] MEDS ORDERED: magnesium Cl slow-release 64mg tablet PO PRN (07:45)
[2019-06-05] MEDS ORDERED: potassium CL 10mEq/100ml bag 100 ML IV PRN ×2 (07:45)
[2019-06-05] MEDS ORDERED: HYDROcodone/acetaminophen 5mg/325mg tablet PO PRN (07:45)
[2019-06-05] MEDS ORDERED: magnesium hydroxide 30ml (MOM) UD suspension PO PRN (07:45)
[2019-06-05] MEDS ORDERED: potassium Cl 20 mEq SR tablet PO PRN ×2 (07:45)
[2019-06-05] MEDS ORDERED: nitroGLYCERIN 0.4mg SUBLingual tab SL PRN ×2 (07:45→19:25)
[2019-06-05] MEDS ORDERED: ondansetron/PF 4mg/2ml inj IV PRN (07:45)
[2019-06-05] MEDS ORDERED: magnesium 2GM in 50ml NS 50 ML IV PRN (07:45)
[2019-06-05] MEDS ORDERED: magnesium 4gm in 100ml NS 100 ML IV PRN (07:45)
[2019-06-05] MEDS ORDERED: LEVE750T6 PO (07:47)
[2019-06-05] MEDS ORDERED: SERT50TA PO (07:47)
[2019-06-05] MEDS ORDERED: BISA10SU60 RC (07:47)
[2019-06-05] MEDS ORDERED: ACET-890 PEG (07:47)
[2019-06-05] MEDS: K and/or MAG REPLACEMENT MC SCH ×2 (08:00→20:00)
[2019-06-05] MEDS ORDERED: lamoTRIgine 100mg tablet PO SCH (12:00)
--- NOTE | 2019-06-05 12:10 | NUR ---
ENTERED TELEPHONE ORDER FROM HOSPITALIST FOR KEMATTRA AND RADHA, HOSPITALIST TO REVIEW ALL OTHER MEDS.
[2019-06-05] MEDS: levetiracetam 250mg tablet PO SCH ×2 (12:54→22:13)
[2019-06-05] MEDS: clonazePAM 0.5mg tablet PO SCH ×3 (12:55→22:14)
[2019-06-05] MEDS ORDERED: non-formulary drug (Clonazepam 1 TAB) PO PRN (13:25)
[2019-06-05] MEDS: lamoTRIgine 100mg tablet PO SCH ×2 (13:41→22:14)
--- NOTE | 2019-06-05 13:50 | NUR ---
Report received from ED RNJami.
[2019-06-05 14:10] VITALS: BP 154/66
[2019-06-05] MEDS: albuterol 2.5 MG/3 ML nebule NEB SCH ×2 (14:48→20:17)
[2019-06-05] MEDS ORDERED: levetiracetam 250mg tablet PO ONE ×2 (16:00→20:00)
--- NOTE | 2019-06-05 18:20 | NUR ---
Problems reprioritized. Patient report given, questions answered & plan of care reviewed with ALBARO Quiroga.
--- NOTE | 2019-06-05 18:50 | NUR ---
Patient in room BRIAN 345. I have received report from Marry IRVIN and had the opportunity to ask questions and assume patient care.
[2019-06-05 19:00] VITALS: BP 170/87
--- NOTE | 2019-06-05 19:15 | NUR ---
Informed of elevated BP170/87, HR 75. Called MD and received orders for prn hydralazine and metoprolol.
[2019-06-05] MEDS ORDERED: metoprolol tartrate 12.5mg (1/2 tablet) PO ONE (19:20)
[2019-06-05] MEDS ORDERED: regadenoson 0.4mg/5ml syringe IV ONE (19:25)
[2019-06-05] MEDS ORDERED: aminophylline 250mg/10ml inj. IV PRN (19:25)
[2019-06-05] MEDS ORDERED: metoprolol tartrate 1mg/ml inj IV PRN (19:25)
[2019-06-05] MEDS: hydrALAZINE 20mg/ml inj. IV PRN (19:30)
[2019-06-05] MEDS ORDERED: polyvinyl alcohol ophthalmic drops 15ml bottle EACHEYE PRN (20:00)
[2019-06-05] MEDS ORDERED: non-formulary drug (Levetiracetam (Keppra) 1 TAB) PO SCH (20:00)
[2019-06-05] MEDS: bisacodyl 10mg suppository rectal RC SCH (20:00)
[2019-06-05] MEDS ORDERED: non-formulary drug (Levetiracetam 1 TAB) PO SCH (20:00)
[2019-06-05] MEDS: budesonide 0.5mg/2ml UD nebule IH SCH (20:17)
--- NOTE | 2019-06-05 20:30 | NUR ---
Rechecked after 10mg hydralazine IVP and 12.5mg metoprolol PO. BP now 187/80, HR 72. Called MD, no new orders.
[2019-06-05] MEDS: apixaban 5mg tablet PO SCH (22:13)
[2019-06-05] MEDS: atorvastatin 10mg tablet PO SCH (22:16)
[2019-06-06] VITALS (9 sets, daily range): BP systolic 133–162; BP diastolic 60–84
[2019-06-06] MEDS: clonazePAM 0.5mg tablet PO SCH ×6 (01:04→20:14)
[2019-06-06] MEDS: albuterol 2.5 MG/3 ML nebule NEB SCH ×4 (02:49→20:01)
[2019-06-06 05:33] LABS: BASOPHILS # (AUTO) 0.1 X10'3 (0-0.2); BASOPHILS % (AUTO) 0.5 % (0-1); EOSINOPHILS # (AUTO) 0.2 X10'3 (0-0.9); EOSINOPHILS % (AUTO) 1.4 % (0-6); HEMATOCRIT 41.4 % (42.0-52.0); HEMOGLOBIN 13.9 g/dl (14.0-17.9); LYMPHOCYTES # (AUTO) 1.6 X10'3 (1.1-4.8); LYMPHOCYTES % (AUTO) 13.7 % (21-51); MEAN CORPUSCULAR HEMOGLOBIN 30.4 PG (27.0-31.0); MEAN CORPUSCULAR HGB CONC 33.6 g/dL (33.0-36.5); MEAN CORPUSCULAR VOLUME 90.4 FL (78-98); MEAN PLATELET VOLUME 7.5 FL (7.4-10.4); MONOCYTES # (AUTO) 0.8 X10'3 (0-0.9); MONOCYTES % (AUTO) 6.5 % (2-12); NEUTROPHILS # (AUTO) 9.2 X10'3 (1.8-7.7); NEUTROPHILS % (AUTO) 77.9 % (42-75); PLATELET COUNT 170 X10'3 (140-440); RED BLOOD COUNT 4.58 X10'6 (4.70-6.10); RED CELL DISTRIBUTION WIDTH 15.7 % (11.5-14.5); WHITE BLOOD COUNT 11.8 X10'3 (4.5-11.0)
[2019-06-06 05:41] LABS: ALBUMIN 3.7 G/DL (3.4-5.0); ANION GAP 10 (8-16); BLOOD UREA NITROGEN 19 MG/DL (7-18); BUN/CREATININE RATIO 13.9 (5.4-32.0); CHLORIDE 108 MMOL/L (99-107); CHOL/HDL RATIO 3.3 (0.00-4.99); CHOLESTEROL 146 MG/DL (0-200); CREATININE 1.37 MG/DL (0.60-1.10); GLUCOSE 109 MG/DL (70-104); HDL CHOLESTEROL 44 MG/DL (35-60); LDL CHOLESTEROL 82 MG/DL (50-100); MAGNESIUM 2.1 MG/DL (1.5-2.4); POTASSIUM 4.6 MMOL/L (3.5-5.1); SODIUM 145 MMOL/L (135-145); TOTAL CARBON DIOXIDE 26.7 MMOL/L (24-32); TRIGLYCERIDES 169 MG/DL (20-135); eGFR 51 ML/MIN
--- NOTE | 2019-06-06 06:38 | NUR ---
Patient in room BRIAN 345. I have received report from ALBARO Quiroga and had the opportunity to ask questions and assume patient care.
--- NOTE | 2019-06-06 06:42 | NUR ---
Problems reprioritized. Patient report given, questions answered & plan of care reviewed with Daniela RN. Patient currently resting on his right side. BLL,SR up.
[2019-06-06] MEDS: bisacodyl 10mg suppository rectal RC SCH ×2 (08:00→20:00)
[2019-06-06] MEDS ORDERED: sertraline 50mg tablet PO SCH (08:00)
[2019-06-06] MEDS ORDERED: [UNRECOGNIZED DRUG - OTHER] PO SCH (08:00)
[2019-06-06] MEDS: K and/or MAG REPLACEMENT MC SCH ×2 (08:00→20:00)
[2019-06-06] MEDS ORDERED: non-formulary drug (Fluticasone/Salmeterol* (Advair 100-50 Diskus*) 1 INH) IH SCH (08:00)
[2019-06-06] MEDS: apixaban 5mg tablet PO SCH ×2 (08:35→20:14)
[2019-06-06] MEDS: sertraline 50mg tablet PO SCH (08:36)
[2019-06-06] MEDS: levoTHYROXINE 75mcg tablet PO SCH (08:36)
[2019-06-06] MEDS: lamoTRIgine 100mg tablet PO SCH ×2 (08:36→20:13)
[2019-06-06] MEDS: budesonide 0.5mg/2ml UD nebule IH SCH ×2 (09:24→20:01)
[2019-06-06] MEDS: amiodarone 200mg tablet PO SCH (11:59)
[2019-06-06] MEDS: levetiracetam 250mg tablet PO SCH ×2 (12:00→20:13)
[2019-06-06] MEDS: metoprolol tartrate 12.5mg (1/2 tablet) PO SCH ×2 (12:00→20:14)
[2019-06-06] MEDS: hydrALAZINE 20mg/ml inj. IV PRN (13:30)
--- NOTE | 2019-06-06 14:00 | NUR ---
Patient's blood pressure high at 162/84 systolic HR 61, after giving pt's po BP medications. 10 mg of Hydralazine given at 1330 and pt's BP now 144/66 with HR 64. will continue to monitor.
--- NOTE | 2019-06-06 18:35 | NUR ---
Problems reprioritized. Patient report given, questions answered & plan of care reviewed with ALBARO Duncan.
--- NOTE | 2019-06-06 18:40 | NUR ---
Patient in room [facility]RIAN 345. I have received report from Daniela IRVIN and had the opportunity to ask questions and assume patient care.
[2019-06-06] MEDS: atorvastatin 10mg tablet PO SCH (20:14)
[2019-06-07] VITALS: BP 140/72
[2019-06-07] MEDS: clonazePAM 0.5mg tablet PO SCH ×4 (00:13→13:06)
[2019-06-07] MEDS: albuterol 2.5 MG/3 ML nebule NEB SCH ×2 (02:47→08:29)
[2019-06-07 04:47] LABS: BASOPHILS # (AUTO) 0.1 X10'3 (0-0.2); BASOPHILS % (AUTO) 0.5 % (0-1); EOSINOPHILS # (AUTO) 0.2 X10'3 (0-0.9); EOSINOPHILS % (AUTO) 1.4 % (0-6); HEMATOCRIT 41.9 % (42.0-52.0); HEMOGLOBIN 14.1 g/dl (14.0-17.9); LYMPHOCYTES # (AUTO) 1.6 X10'3 (1.1-4.8); LYMPHOCYTES % (AUTO) 13.4 % (21-51); MEAN CORPUSCULAR HEMOGLOBIN 29.9 PG (27.0-31.0); MEAN CORPUSCULAR HGB CONC 33.6 g/dL (33.0-36.5); MEAN CORPUSCULAR VOLUME 88.9 FL (78-98); MEAN PLATELET VOLUME 7.7 FL (7.4-10.4); MONOCYTES # (AUTO) 0.9 X10'3 (0-0.9); MONOCYTES % (AUTO) 7.1 % (2-12); NEUTROPHILS # (AUTO) 9.5 X10'3 (1.8-7.7); NEUTROPHILS % (AUTO) 77.6 % (42-75); PLATELET COUNT 183 X10'3 (140-440); RED BLOOD COUNT 4.72 X10'6 (4.70-6.10); RED CELL DISTRIBUTION WIDTH 15.7 % (11.5-14.5); WHITE BLOOD COUNT 12.3 X10'3 (4.5-11.0)
[2019-06-07 04:55] LABS: ALBUMIN 3.7 G/DL (3.4-5.0); ANION GAP 7 (8-16); BLOOD UREA NITROGEN 20 MG/DL (7-18); CALCIUM 9.1 MG/DL (8.5-10.1); CHLORIDE 109 MMOL/L (99-107); CREATININE 1.43 MG/DL (0.60-1.10); GLUCOSE 103 MG/DL (70-104); MAGNESIUM 2.2 MG/DL (1.5-2.4); POTASSIUM 4.4 MMOL/L (3.5-5.1); SODIUM 144 MMOL/L (135-145); TOTAL CARBON DIOXIDE 28.4 MMOL/L (24-32); eGFR 48 ML/MIN
--- NOTE | 2019-06-07 06:17 | NUR ---
Patient in room [facility]RIAN 345. I have received report from ALBARO QUESADA and had the opportunity to ask questions and assume patient care.
--- NOTE | 2019-06-07 06:18 | NUR ---
Problems reprioritized. Patient report given, questions answered & plan of care reviewed with Daniela RN.
[2019-06-07] MEDS: apixaban 5mg tablet PO SCH (07:32)
[2019-06-07] MEDS: amiodarone 200mg tablet PO SCH (07:33)
[2019-06-07] MEDS: sertraline 50mg tablet PO SCH (07:33)
[2019-06-07] MEDS: levoTHYROXINE 75mcg tablet PO SCH (07:33)
[2019-06-07] MEDS: lamoTRIgine 100mg tablet PO SCH (07:33)
[2019-06-07] MEDS: bisacodyl 10mg suppository rectal RC SCH (07:33)
[2019-06-07] MEDS: metoprolol tartrate 12.5mg (1/2 tablet) PO SCH (07:33)
[2019-06-07 07:37] VITALS: BP 134/58
[2019-06-07] MEDS: K and/or MAG REPLACEMENT MC SCH (08:00)
[2019-06-07] MEDS: budesonide 0.5mg/2ml UD nebule IH SCH (08:29)
[2019-06-07 11:30] VITALS: BP 142/74
[2019-06-07] MEDS: levetiracetam 250mg tablet PO SCH (13:06)
--- NOTE | 2019-06-07 14:15 | NUR ---
REPORT GIVEN TO ALBARO BUSH AT [facility]. ALL QUESTIONS ANSWERED AND PATIENT HAS LEFT WITH ALL BELONGINGS AND EUGENIA CARGO, PT STABLE FOR TRANSFER VIA GURNEY.
== END 2019-06-07 14:01 | DRG 303 ==
LOC: ER 05:10 → ED HOLD 07:49 → OBSVTOIN 07:49 → INTOOBSV 07:49 → EDBEDREQ 12:46 → SUR 3N 14:11
PROVIDERS: ADMIT Hospitalist; ATTEND Hospitalist
PROC: 4A02XM4 Measurement of Cardiac Total Activity, External Approach (ICD-10-PCS; principal; 2019-06-06)
PROC: 3E033HZ Introduction of Radioactive Substance into Peripheral Vein, Percutaneous Approach (ICD-10-PCS; 2019-06-06)
DX: I25.119 Atherosclerotic heart disease of native coronary artery with unspecified angina pectoris (principal); I24.9 Acute ischemic heart disease, unspecified; G20 Parkinson's disease; I48.91 Unspecified atrial fibrillation; I25.10 Atherosclerotic heart disease of native coronary artery without angina pectoris; I10 Essential (primary) hypertension; F02.80 Dementia in other diseases classified elsewhere, unspecified severity, without behavioral disturbance, psychotic disturbance, mood disturbance, and anxiety; E78.00 Pure hypercholesterolemia, unspecified; I25.2 Old myocardial infarction; Z87.440 Personal history of urinary (tract) infections; Z90.49 Acquired absence of other specified parts of digestive tract; Z95.1 Presence of aortocoronary bypass graft; Z87.891 Personal history of nicotine dependence; Z82.49 Family history of ischemic heart disease and other diseases of the circulatory system; Z74.01 Bed confinement status
CPT/HCPCS: 36415; 71045; 78452; 80048; 80053; 80061; 83735; 84145; 84439; 84443; 84484; 85025; 87081; 93005; 93017; 93306; 94640; 94760; 97161; 97530; 99285; A9500; G0378; J0280; J0360; J2785; J7626

== ENCOUNTER 2020-02-17 17:09 | Emergency (ER) | payer MEDICARE, OTHER ==
[~2020-02-17] VITALS: Ht 175.3 cm; Wt 100.0 kg
[~2020-02-17 17:09] MED LIST changes: +ACET-890 PEG; +BISA10SU60 RC; +LEVE750T6 PO; +SERT50TA PO
[2020-02-17 17:20] VITALS: BP 129/92
== END 2020-02-17 19:18 | disposition home or self-care (01) ==
LOC: ER 17:10
DX: S70.02XA Contusion of left hip, initial encounter (principal); G20 Parkinson's disease; F02.80 Dementia in other diseases classified elsewhere, unspecified severity, without behavioral disturbance, psychotic disturbance, mood disturbance, and anxiety; I48.91 Unspecified atrial fibrillation; I25.10 Atherosclerotic heart disease of native coronary artery without angina pectoris; E78.00 Pure hypercholesterolemia, unspecified; I10 Essential (primary) hypertension; I25.2 Old myocardial infarction; Z98.61 Coronary angioplasty status; Z90.49 Acquired absence of other specified parts of digestive tract; Z95.1 Presence of aortocoronary bypass graft; Z95.0 Presence of cardiac pacemaker; Z98.890 Other specified postprocedural states; Z79.01 Long term (current) use of anticoagulants; Z79.899 Other long term (current) drug therapy; W05.0XXA Fall from non-moving wheelchair, initial encounter; Y93.89 Activity, other specified; Y92.89 Other specified places as the place of occurrence of the external cause; Y99.8 Other external cause status
CPT/HCPCS: 73502; 99283

== ENCOUNTER 2020-11-07 19:07 | Observation (INO) | payer OTHER, MEDICARE ==
[~2020-11-07] VITALS: Ht 180.3 cm; Wt 108.2 kg
[~2020-11-07 19:07] MED LIST changes: -ACET-890 PEG; -ADV50100 IH; -AMIO200T61 PO; +ASPI-1265 PO; -ATOR10TA70 PO; -BISA10SU60 RC; +CLON-567 PO; -CLON0.5T23 PO; +FLUT1DIS INH; -LAMO100T PO; +LAMO100T65 PO; -LEVE750T6 PO; +MECO10005; +MULT-1219 PO; -SERT50TA PO
[2020-11-07] MEDS ORDERED: aspirin 81mg tab.chew PO ONE (19:30)
[2020-11-07 20:17] LABS: BASOPHILS % (AUTO) 0.5 % (0-1); EOSINOPHILS # (AUTO) 0.2 X10'3 (0-0.9); EOSINOPHILS % (AUTO) 2.5 % (0-6); HEMATOCRIT 37.6 % (42.0-52.0); HEMOGLOBIN 12.7 g/dl (14.0-17.9); LYMPHOCYTES # (AUTO) 1.7 X10'3 (1.1-4.8); MEAN CORPUSCULAR HEMOGLOBIN 28.8 PG (27.0-31.0); MEAN CORPUSCULAR HGB CONC 33.7 g/dL (33.0-36.5); MEAN CORPUSCULAR VOLUME 85.5 FL (78-98); MEAN PLATELET VOLUME 7.2 FL (7.4-10.4); MONOCYTES # (AUTO) 0.8 X10'3 (0-0.9); MONOCYTES % (AUTO) 7.8 % (2-12); NEUTROPHILS # (AUTO) 7.3 X10'3 (1.8-7.7); NEUTROPHILS % (AUTO) 72.2 % (42-75); PLATELET COUNT 262 X10'3 (140-440); RED CELL DISTRIBUTION WIDTH 14.8 % (11.5-14.5)
[2020-11-07 20:25] LABS: PARTIAL THROMBOPLASTIN TIME 44 SECONDS (22-32)
[2020-11-07 20:30] LABS: ALANINE AMINOTRANSFERASE 21 U/L (12-78); ALBUMIN 3.2 G/DL (3.4-5.0); ALBUMIN/GLOBULIN RATIO 0.9 (1.1-1.5); ALKALINE PHOSPHATASE 95 IU/L (46-116); ANION GAP 8 (8-16); ASPARTATE AMINO TRANSFERASE 10 U/L (10-37); BILIRUBIN,TOTAL 0.4 MG/DL (0.1-1.0); BLOOD UREA NITROGEN 24 MG/DL (7-18); BUN/CREATININE RATIO 16.8 (5.4-32.0); CALCIUM 8.7 MG/DL (8.5-10.1); CHLORIDE 106 MMOL/L (99-107); CREATININE 1.43 MG/DL (0.60-1.10); GLUCOSE 120 MG/DL (70-104); POTASSIUM 4.1 MMOL/L (3.5-5.1); SODIUM 142 MMOL/L (135-145); TOTAL CARBON DIOXIDE 28.3 MMOL/L (24-32); TOTAL PROTEIN 6.9 G/DL (6.4-8.2); eGFR 48 ML/MIN
[2020-11-07 20:38] LABS: MAGNESIUM 2.2 MG/DL (1.5-2.4)
[2020-11-07] MEDS ORDERED: HYDR-3973 PO (21:17)
[2020-11-07] MEDS ORDERED: MEMA5TAB42 PO (21:17)
[2020-11-07] MEDS ORDERED: HYDR-3965 PO (21:17)
[2020-11-07] MEDS ORDERED: DOCU-148 PO (21:17)
[2020-11-07] MEDS ORDERED: RIVA20TA PO (21:17)
[2020-11-07] MEDS ORDERED: LACT1CAP65 PO (21:17)
[2020-11-07] MEDS ORDERED: FLUT1DIS INH (21:17)
[2020-11-07] MEDS ORDERED: potassium Cl 20 mEq SR tablet PO PRN ×2 (21:55)
[2020-11-07] MEDS ORDERED: ondansetron/PF 4mg/2ml inj IV PRN (21:55)
[2020-11-07] MEDS ORDERED: potassium Cl 40MEQ/1/2NS 520ml 520 ML IV PRN ×2 (21:55)
[2020-11-07] MEDS ORDERED: HYDROcodone/acetaminophen 5mg/325mg tablet PO PRN (22:00)
[2020-11-07] MEDS ORDERED: non-formulary drug (Fluticasone/Salmeterol (Advair 100-50 Diskus) 1 PUFFS) INH SCH (22:00)
[2020-11-07] MEDS ORDERED: clonazePAM 0.5mg tablet PO PRN (22:00)
[2020-11-07] MEDS ORDERED: nitroGLYCERIN 0.4mg SUBLingual tab SL PRN (22:00)
--- NOTE | 2020-11-07 23:32 | NUR ---
Called report to Tele Unit - RN doing med pass, requested call back in 5 minutes.
--- NOTE | 2020-11-07 23:45 | NUR ---
Patient in room PCU 3023. I have received report from PATTI HOOK RN and had the opportunity to ask questions and assume patient care.
[2020-11-08] VITALS (7 sets, daily range): BP systolic 132–161; BP diastolic 53–94
[2020-11-08] MEDS: albuterol 2.5 MG/3 ML nebule NEB SCH ×4 (02:37→20:16)
[2020-11-08 02:41] LABS: BASOPHILS % (AUTO) 0.4 % (0-1); EOSINOPHILS # (AUTO) 0.3 X10'3 (0-0.9); EOSINOPHILS % (AUTO) 2.6 % (0-6); HEMATOCRIT 38.2 % (42.0-52.0); HEMOGLOBIN 12.8 g/dl (14.0-17.9); LYMPHOCYTES # (AUTO) 1.9 X10'3 (1.1-4.8); LYMPHOCYTES % (AUTO) 18.8 % (21-51); MEAN CORPUSCULAR HEMOGLOBIN 28.7 PG (27.0-31.0); MEAN CORPUSCULAR HGB CONC 33.6 g/dL (33.0-36.5); MEAN CORPUSCULAR VOLUME 85.5 FL (78-98); MEAN PLATELET VOLUME 7.4 FL (7.4-10.4); MONOCYTES # (AUTO) 0.7 X10'3 (0-0.9); MONOCYTES % (AUTO) 7.1 % (2-12); NEUTROPHILS # (AUTO) 7.1 X10'3 (1.8-7.7); NEUTROPHILS % (AUTO) 71.1 % (42-75); PLATELET COUNT 253 X10'3 (140-440); RED BLOOD COUNT 4.47 X10'6 (4.70-6.10)
[2020-11-08 03:05] LABS: ALANINE AMINOTRANSFERASE 19 U/L (12-78); ALBUMIN 3.2 G/DL (3.4-5.0); ALBUMIN/GLOBULIN RATIO 0.8 (1.1-1.5); ALKALINE PHOSPHATASE 88 IU/L (46-116); ANION GAP 11 (8-16); ASPARTATE AMINO TRANSFERASE 10 U/L (10-37); BILIRUBIN,TOTAL 0.4 MG/DL (0.1-1.0); BLOOD UREA NITROGEN 27 MG/DL (7-18); CALCIUM 8.8 MG/DL (8.5-10.1); CHLORIDE 107 MMOL/L (99-107); CREATININE 1.35 MG/DL (0.60-1.10); GLUCOSE 109 MG/DL (70-104); POTASSIUM 4.1 MMOL/L (3.5-5.1); SODIUM 143 MMOL/L (135-145); TOTAL CARBON DIOXIDE 24.6 MMOL/L (24-32); eGFR 51 ML/MIN
--- NOTE | 2020-11-08 06:12 | NUR ---
Problems reprioritized. Patient report given, questions answered & plan of care reviewed with JEROME IRVIN.
--- NOTE | 2020-11-08 06:30 | NUR ---
Patient in room PCU 3023. I have received report from Yandy IRVIN and had the opportunity to ask questions and assume patient care.
[2020-11-08] MEDS ORDERED: nitroGLYCERIN 0.4mg SUBLingual tab SL PRN (07:45)
[2020-11-08] MEDS ORDERED: metoprolol tartrate 1mg/ml inj IV PRN (07:45)
[2020-11-08] MEDS ORDERED: regadenoson 0.4mg/5ml syringe IV PRN (07:45)
[2020-11-08] MEDS: pantoprazole 40mg Tablet.DR PO SCH (07:45)
[2020-11-08] MEDS ORDERED: aminophylline 250mg/10ml inj. IV PRN (07:45)
[2020-11-08] MEDS: levetiracetam 250mg tablet PO SCH ×3 (07:51→21:02)
[2020-11-08] MEDS: lactobacillus rhamnosus 10,000 MMU CELLS/CAPSULE PO SCH ×2 (07:51→21:00)
[2020-11-08] MEDS: multivitamins, therapeutics tablet PO SCH (07:52)
[2020-11-08] MEDS: aspirin 81mg tab.chew PO SCH (07:52)
[2020-11-08] MEDS: levoTHYROXINE 75mcg tablet PO SCH (07:52)
[2020-11-08] MEDS: docusate sod 100mg capsule PO SCH ×2 (07:52→21:02)
[2020-11-08] MEDS: HYDROcodone/acetaminophen 10/325mg tab PO PRN (07:53)
[2020-11-08] MEDS: beta-carotene(A) w/C & E + minerals tab PO SCH (07:54)
[2020-11-08] MEDS: memantine 5mg tablet PO SCH ×2 (07:54→21:02)
[2020-11-08] MEDS: lamoTRIgine 100mg tablet PO SCH ×2 (07:54→21:03)
[2020-11-08] MEDS: PEG 400/HYPROMELLOSE/GLYCERIN 15ml bottle EACHEYE SCH ×2 (07:56→20:00)
[2020-11-08] MEDS ORDERED: sertraline 50mg tablet PO SCH (08:00)
[2020-11-08] MEDS: K and/or MAG REPLACEMENT MC SCH ×2 (08:00→20:00)
[2020-11-08] MEDS: budesonide 0.5mg/2ml UD nebule IH SCH ×2 (08:00→20:16)
[2020-11-08] MEDS ORDERED: LAMO100T PO (12:37)
[2020-11-08] MEDS ORDERED: CYAN-51 PO (12:37)
[2020-11-08] MEDS ORDERED: ALBU2.5V12 NEB (12:37)
[2020-11-08] MEDS: rivaroxaban 20mg tablet PO SCH (16:19)
--- NOTE | 2020-11-08 18:21 | NUR ---
Problems reprioritized. Patient report given, questions answered & plan of care reviewed with Alicia IRVIN.
[2020-11-08] MEDS: sertraline 50mg tablet PO SCH (21:01)
[2020-11-09] VITALS (17 sets, daily range): BP systolic 105–160; BP diastolic 58–82
[2020-11-09] MEDS: albuterol 2.5 MG/3 ML nebule NEB SCH ×5 (02:48→21:30)
--- NOTE | 2020-11-09 06:10 | NUR ---
Patient in room PCU 3023. I have received report from Alicia IRVIN and had the opportunity to ask questions and assume patient care.
--- NOTE | 2020-11-09 06:26 | NUR ---
Problems reprioritized. Patient report given, questions answered & plan of care reviewed with Winsome IRVIN.
[2020-11-09 06:33] LABS: BASOPHILS # (AUTO) 0.1 X10'3 (0-0.2); BASOPHILS % (AUTO) 0.6 % (0-1); EOSINOPHILS # (AUTO) 0.2 X10'3 (0-0.9); EOSINOPHILS % (AUTO) 2.3 % (0-6); HEMATOCRIT 37.5 % (42.0-52.0); HEMOGLOBIN 12.5 g/dl (14.0-17.9); LYMPHOCYTES # (AUTO) 1.3 X10'3 (1.1-4.8); LYMPHOCYTES % (AUTO) 13.2 % (21-51); MEAN CORPUSCULAR HEMOGLOBIN 28.7 PG (27.0-31.0); MEAN CORPUSCULAR HGB CONC 33.2 g/dL (33.0-36.5); MEAN CORPUSCULAR VOLUME 86.5 FL (78-98); MEAN PLATELET VOLUME 7.1 FL (7.4-10.4); MONOCYTES # (AUTO) 0.6 X10'3 (0-0.9); MONOCYTES % (AUTO) 6.4 % (2-12); NEUTROPHILS # (AUTO) 7.4 X10'3 (1.8-7.7); NEUTROPHILS % (AUTO) 77.5 % (42-75); PLATELET COUNT 241 X10'3 (140-440); RED BLOOD COUNT 4.34 X10'6 (4.70-6.10); RED CELL DISTRIBUTION WIDTH 15.2 % (11.5-14.5); WHITE BLOOD COUNT 9.5 X10'3 (4.5-11.0)
[2020-11-09 06:59] LABS: ALANINE AMINOTRANSFERASE 19 U/L (12-78); ALBUMIN 3.3 G/DL (3.4-5.0); ALBUMIN/GLOBULIN RATIO 0.9 (1.1-1.5); ALKALINE PHOSPHATASE 84 IU/L (46-116); ANION GAP 11 (8-16); ASPARTATE AMINO TRANSFERASE 9 U/L (10-37); BILIRUBIN,TOTAL 0.5 MG/DL (0.1-1.0); BLOOD UREA NITROGEN 23 MG/DL (7-18); CALCIUM 8.9 MG/DL (8.5-10.1); CHLORIDE 104 MMOL/L (99-107); CREATININE 1.35 MG/DL (0.60-1.10); GLUCOSE 109 MG/DL (70-104); SODIUM 140 MMOL/L (135-145); TOTAL CARBON DIOXIDE 25.4 MMOL/L (24-32); eGFR 51 ML/MIN
[2020-11-09] MEDS: budesonide 0.5mg/2ml UD nebule IH SCH ×3 (07:25→21:31)
[2020-11-09] MEDS: levetiracetam 250mg tablet PO SCH ×3 (07:27→19:56)
[2020-11-09] MEDS: pantoprazole 40mg Tablet.DR PO SCH (07:27)
[2020-11-09] MEDS: aspirin 81mg tab.chew PO SCH (07:27)
[2020-11-09] MEDS: HYDROcodone/acetaminophen 10/325mg tab PO PRN (07:27)
[2020-11-09] MEDS: multivitamins, therapeutics tablet PO SCH (07:28)
[2020-11-09] MEDS: lamoTRIgine 100mg tablet PO SCH ×2 (07:28→19:56)
[2020-11-09] MEDS: sertraline 50mg tablet PO SCH ×2 (07:28→19:57)
[2020-11-09] MEDS: beta-carotene(A) w/C & E + minerals tab PO SCH (07:28)
[2020-11-09] MEDS: levoTHYROXINE 75mcg tablet PO SCH (07:28)
[2020-11-09] MEDS: lactobacillus rhamnosus 10,000 MMU CELLS/CAPSULE PO SCH ×2 (07:28→19:57)
[2020-11-09] MEDS: docusate sod 100mg capsule PO SCH ×2 (07:28→19:56)
[2020-11-09] MEDS: memantine 5mg tablet PO SCH ×2 (07:29→19:56)
[2020-11-09] MEDS: clonazePAM 0.5mg tablet PO PRN ×2 (07:35→17:03)
[2020-11-09] MEDS: PEG 400/HYPROMELLOSE/GLYCERIN 15ml bottle EACHEYE SCH ×2 (07:36→19:58)
[2020-11-09] MEDS: K and/or MAG REPLACEMENT MC SCH ×2 (07:37→20:00)
[2020-11-09] MEDS ORDERED: regadenoson 0.4mg/5ml syringe IV PRN (10:10)
--- NOTE | 2020-11-09 15:43 | NUR ---
PAged Dr. Finnegan PAGER ID: [phone] MESSAGE: [phone] [id number] Kiel Llamas, Ashlyn test results are now in computer. Also Case management has orders you left here. Winsome IRVIN 2016
[2020-11-09] MEDS: rivaroxaban 20mg tablet PO SCH (17:00)
--- NOTE | 2020-11-09 18:19 | NUR ---
Problems reprioritized. Patient report given, questions answered & plan of care reviewed with Osman RN.
--- NOTE | 2020-11-09 18:22 | NUR ---
Patient in room PCU 3023. I have received report from Winsome IRVIN and had the opportunity to ask questions and assume patient care.
--- NOTE | 2020-11-09 19:09 | NUR ---
Patient has discharge orders put in at 1800. Spoke to patient who notified me to call his Anna Marie who is his transportation. Spoke to Anna Marie on the phone who stated that she was told he was being discharged in the morning and she is unable to pick him up tonight. She has a doctors appointment in the morning and will be able to get him after 11 am. Will notify the night time MD.
[2020-11-09] MEDS: metoprolol tartrate 25mg tablet PO SCH (19:58)
[2020-11-09] MEDS: amiodarone 200mg tablet PO SCH (19:58)
[2020-11-09] MEDS: atorvastatin 20mg tablet PO SCH (20:02)
--- NOTE | 2020-11-09 21:18 | NUR ---
PAGER ID: [phone] MESSAGE: [id number] Kiel Llamas 75m came in for chest pain. He had a discharge order put in at 1800. The patient stated that his is unable to pick him up and is able to be here at 11am tomorrow morning. Just wanted to notify you. Thanks, Osman [phone]
[2020-11-10] MEDS: clonazePAM 0.5mg tablet PO PRN ×2 (00:56→07:17)
[2020-11-10 02:00] VITALS: BP 138/69
[2020-11-10] MEDS: albuterol 2.5 MG/3 ML nebule NEB SCH ×2 (02:00→07:56)
--- NOTE | 2020-11-10 06:19 | NUR ---
Problems reprioritized. Patient report given, questions answered & plan of care reviewed with Winsome IRVIN.
--- NOTE | 2020-11-10 06:22 | NUR ---
Patient in room PCU 3023. I have received report from Osman IRVIN and had the opportunity to ask questions and assume patient care.
[2020-11-10 06:45] LABS: BASOPHILS % (AUTO) 0.5 % (0-1); EOSINOPHILS # (AUTO) 0.3 X10'3 (0-0.9); EOSINOPHILS % (AUTO) 3.3 % (0-6); HEMATOCRIT 37.7 % (42.0-52.0); HEMOGLOBIN 12.8 g/dl (14.0-17.9); LYMPHOCYTES # (AUTO) 1.4 X10'3 (1.1-4.8); LYMPHOCYTES % (AUTO) 15.2 % (21-51); MEAN CORPUSCULAR HEMOGLOBIN 29.1 PG (27.0-31.0); MEAN CORPUSCULAR VOLUME 85.5 FL (78-98); MEAN PLATELET VOLUME 7.4 FL (7.4-10.4); MONOCYTES # (AUTO) 0.7 X10'3 (0-0.9); MONOCYTES % (AUTO) 7.2 % (2-12); NEUTROPHILS # (AUTO) 6.7 X10'3 (1.8-7.7); NEUTROPHILS % (AUTO) 73.8 % (42-75); PLATELET COUNT 227 X10'3 (140-440); RED BLOOD COUNT 4.41 X10'6 (4.70-6.10); RED CELL DISTRIBUTION WIDTH 15.1 % (11.5-14.5); WHITE BLOOD COUNT 9.1 X10'3 (4.5-11.0)
[2020-11-10 07:00] VITALS: BP 140/67
[2020-11-10 07:15] LABS: ALANINE AMINOTRANSFERASE 22 U/L (12-78); ALBUMIN 3.3 G/DL (3.4-5.0); ALKALINE PHOSPHATASE 86 IU/L (46-116); ANION GAP 11 (8-16); ASPARTATE AMINO TRANSFERASE 13 U/L (10-37); BILIRUBIN,TOTAL 0.6 MG/DL (0.1-1.0); BLOOD UREA NITROGEN 25 MG/DL (7-18); BUN/CREATININE RATIO 17.1 (5.4-32.0); CALCIUM 8.9 MG/DL (8.5-10.1); CHLORIDE 106 MMOL/L (99-107); CREATININE 1.46 MG/DL (0.60-1.10); GLUCOSE 113 MG/DL (70-104); POTASSIUM 4.2 MMOL/L (3.5-5.1); SODIUM 142 MMOL/L (135-145); TOTAL CARBON DIOXIDE 25.4 MMOL/L (24-32); TOTAL PROTEIN 6.7 G/DL (6.4-8.2); eGFR 47 ML/MIN
[2020-11-10] MEDS: lactobacillus rhamnosus 10,000 MMU CELLS/CAPSULE PO SCH (07:15)
[2020-11-10] MEDS: atorvastatin 20mg tablet PO SCH (07:15)
[2020-11-10] MEDS: amiodarone 200mg tablet PO SCH (07:15)
[2020-11-10] MEDS: pantoprazole 40mg Tablet.DR PO SCH (07:16)
[2020-11-10] MEDS: levetiracetam 250mg tablet PO SCH (07:16)
[2020-11-10] MEDS: beta-carotene(A) w/C & E + minerals tab PO SCH (07:16)
[2020-11-10] MEDS: multivitamins, therapeutics tablet PO SCH (07:17)
[2020-11-10] MEDS: levoTHYROXINE 75mcg tablet PO SCH (07:17)
[2020-11-10] MEDS: lamoTRIgine 100mg tablet PO SCH (07:17)
[2020-11-10 07:18] VITALS: BP_SYST 140
[2020-11-10] MEDS: metoprolol tartrate 25mg tablet PO SCH (07:18)
[2020-11-10] MEDS: memantine 5mg tablet PO SCH (07:18)
[2020-11-10] MEDS: aspirin 81mg tab.chew PO SCH (07:18)
[2020-11-10] MEDS: docusate sod 100mg capsule PO SCH (07:20)
[2020-11-10] MEDS: PEG 400/HYPROMELLOSE/GLYCERIN 15ml bottle EACHEYE SCH (07:21)
[2020-11-10] MEDS: budesonide 0.5mg/2ml UD nebule IH SCH (07:56)
--- NOTE | 2020-11-10 07:56 | NUR ---
PT. REFUSED 0800 SVN. NO RESP. DISTRESS OBSERVED
[2020-11-10] MEDS: K and/or MAG REPLACEMENT MC SCH (08:00)
[2020-11-10] MEDS ORDERED: RIVA20TA PO (09:28)
[2020-11-10] MEDS ORDERED: ATOR20TA66 PO (09:28)
[2020-11-10] MEDS ORDERED: AMIO200T67 PO (09:28)
[2020-11-10] MEDS: sertraline 50mg tablet PO SCH (09:30)
[2020-11-10] MEDS ORDERED: LOP25T PO (09:33)
--- NOTE | 2020-11-10 12:15 | NUR ---
Patient stable and comfortable at discharge. removed PIV with cannula intact, no redness or irritation at PIV site. Gathered all patient valuables and gave to patient and Patient's spouse. Gave patient and patient's spouse new medication prescriptions to take to pharmacy, as patient [facility], the [place] would not accept escript. Reviewed all patient discharge and patient education with patient and patient's spouse. Gave time for patient and patient's spouse to ask questions and receive answers. Patient wheeled down to lobby in wheelchair by staff member and accompanied by patient's spouse. Patient left hospital with spouse in private vehicle.
== END 2020-11-10 12:19 | disposition home or self-care (01) ==
LOC: ER 19:08 → ED HOLD 21:54 → PCU 3S 23:50
PROVIDERS: ADMIT Internal Medicine; ATTEND Internal Medicine
DX: R07.89 Other chest pain (principal); I25.10 Atherosclerotic heart disease of native coronary artery without angina pectoris; E03.9 Hypothyroidism, unspecified; I49.01 Ventricular fibrillation; E78.5 Hyperlipidemia, unspecified; G47.33 Obstructive sleep apnea (adult) (pediatric); E78.00 Pure hypercholesterolemia, unspecified; F02.80 Dementia in other diseases classified elsewhere, unspecified severity, without behavioral disturbance, psychotic disturbance, mood disturbance, and anxiety; G20 Parkinson's disease; I10 Essential (primary) hypertension; I25.2 Old myocardial infarction; G62.9 Polyneuropathy, unspecified; I48.0 Paroxysmal atrial fibrillation; I65.23 Occlusion and stenosis of bilateral carotid arteries; J44.9 Chronic obstructive pulmonary disease, unspecified; N21.1 Calculus in urethra; Z87.891 Personal history of nicotine dependence; Z86.69 Personal history of other diseases of the nervous system and sense organs; Z95.810 Presence of automatic (implantable) cardiac defibrillator; Z90.49 Acquired absence of other specified parts of digestive tract; Z95.1 Presence of aortocoronary bypass graft; Z79.01 Long term (current) use of anticoagulants; Z79.51 Long term (current) use of inhaled steroids; Z79.899 Other long term (current) drug therapy
CPT/HCPCS: 36415; 71045; 78452; 80053; 83735; 83880; 84484; 85025; 85610; 85730; 87081; 93005; 93017; 94640; 94760; 96374; 99285; A9500; G0378; J0280; J7626

== ENCOUNTER 2020-12-31 12:49 | Emergency (ER) | payer OTHER, MEDICARE ==
[~2020-12-31] VITALS: Ht 185.4 cm; Wt 110.0 kg
[~2020-12-31 12:49] MED LIST changes: +ALBU2.5V12 NEB; +AMIO200T67 PO; -APIX5TAB3 PO; +ATOR20TA66 PO; +CYAN-51 PO; +DOCU-148 PO; +HYDR-3965 PO; +HYDR-3973 PO; +LACT1CAP65 PO; +LAMO100T PO; -LAMO100T65 PO; +LOP25T PO; -MECO10005; +MEMA5TAB42 PO; +RIVA20TA PO
[2020-12-31] MEDS ORDERED: acetaminophen 325mg tablet PO ONE (13:35)
[2020-12-31] MEDS ORDERED: normal saline 1000ML IV soln IVB ONE (13:50)
[2020-12-31 14:55] LABS: BASOPHILS % (AUTO) 0.3 % (0-1); EOSINOPHILS # (AUTO) 0.1 X10'3 (0-0.9); EOSINOPHILS % (AUTO) 1.2 % (0-6); HEMOGLOBIN 13.5 g/dl (14.0-17.9); LYMPHOCYTES # (AUTO) 1.1 X10'3 (1.1-4.8); LYMPHOCYTES % (AUTO) 10.2 % (21-51); MEAN CORPUSCULAR HEMOGLOBIN 29.1 PG (27.0-31.0); MEAN CORPUSCULAR HGB CONC 33.1 g/dL (33.0-36.5); MEAN CORPUSCULAR VOLUME 87.9 FL (78-98); MEAN PLATELET VOLUME 7.4 FL (7.4-10.4); MONOCYTES # (AUTO) 1.1 X10'3 (0-0.9); MONOCYTES % (AUTO) 10.8 % (2-12); NEUTROPHILS # (AUTO) 8.2 X10'3 (1.8-7.7); NEUTROPHILS % (AUTO) 77.5 % (42-75); PLATELET COUNT 191 X10'3 (140-440); RED BLOOD COUNT 4.66 X10'6 (4.70-6.10); RED CELL DISTRIBUTION WIDTH 17.1 % (11.5-14.5); WHITE BLOOD COUNT 10.6 X10'3 (4.5-11.0)
[2020-12-31 15:06] LABS: ALANINE AMINOTRANSFERASE 18 U/L (12-78); ALBUMIN 4.1 G/DL (3.4-5.0); ALBUMIN/GLOBULIN RATIO 1.2 (1.1-1.5); ALKALINE PHOSPHATASE 105 IU/L (46-116); ANION GAP 12 (8-16); ASPARTATE AMINO TRANSFERASE 11 U/L (10-37); BILIRUBIN,TOTAL 0.9 MG/DL (0.1-1.0); BLOOD UREA NITROGEN 15 MG/DL (7-18); BUN/CREATININE RATIO 9.7 (5.4-32.0); CALCIUM 8.6 MG/DL (8.5-10.1); CHLORIDE 104 MMOL/L (99-107); CREATININE 1.54 MG/DL (0.60-1.10); GLUCOSE 122 MG/DL (70-104); POTASSIUM 4.4 MMOL/L (3.5-5.1); SODIUM 140 MMOL/L (135-145); TOTAL CARBON DIOXIDE 24.3 MMOL/L (24-32); TOTAL PROTEIN 7.6 G/DL (6.4-8.2); eGFR 44 ML/MIN
--- NOTE | 2020-12-31 15:13 | NUR ---
MARILUZ HILL [phone]
--- NOTE | 2020-12-31 15:14 | NUR ---
Critical for lab called from lab steve + Alejandro CARR informed
[2020-12-31] MEDS ORDERED: dexamethasone sod phosphate 10mg/ml inj IV STA (15:26)
[2020-12-31] MEDS ORDERED: DEXA6TAB PO (15:27)
[2020-12-31] MEDS ORDERED: ALBU6.7H9 INH (15:27)
[2020-12-31] MEDS ORDERED: AZIT-63 PO (15:27)
[2020-12-31 16:10] VITALS: BP 137/77
== END 2020-12-31 16:41 | disposition home or self-care (01) ==
LOC: ER 12:49
DX: U07.1 COVID-19 (principal); R63.0 Anorexia; I48.91 Unspecified atrial fibrillation; I13.0 Hypertensive heart and chronic kidney disease with heart failure and stage 1 through stage 4 chronic kidney disease, or unspecified chronic kidney disease; I25.10 Atherosclerotic heart disease of native coronary artery without angina pectoris; I50.9 Heart failure, unspecified; E78.00 Pure hypercholesterolemia, unspecified; I25.2 Old myocardial infarction; N18.9 Chronic kidney disease, unspecified
CPT/HCPCS: 36415; 71045; 80053; 84145; 85025; 87635; 93005; 96374; 99285; C9803; J1100